=== PATIENT | female | born 1980 | race Caucasian/White ===

== ENCOUNTER 2017-11-07 11:00 | Emergency (ER) | payer MEDICAID, OTHER ==
[~2017-11-07] VITALS: Ht 165.1 cm; Wt 135.0 kg
[~2017-11-07 11:00] MED LIST: ALL220TA PO; NAPR550 PO; PREN0.01 PO
[2017-11-07 11:03] VITALS: BP 148/68; PULSE 89; RESP 18; TEMP 98.2; O2SAT 100
[2017-11-07] MEDS ORDERED: SODIUM CHLOR 0.9% 1000 ML INJ 1,000 ML IV SCH (11:26)
--- NOTE | 2017-11-07 11:37 | PD ---
HPI Chief Complaint: Abdominal Pain Time Seen by Provider: 11:25 Travel History International Travel<30 days: No Contact w/Intl Traveler<30days: No Traveled to known affect area: No History of Present Illness HPI 37-year-old female that presents to the ED for evaluation of right upper quadrant and right lower quadrant abdominal pain for the past 2 days. Per patient she was seen at a [facility] yesterday and was told she had gallstones. She was sent with antibiotics. She was told that she needs to follow with her OB. Per patient she was only given Tylenol for pain. Per patient pain is getting more severe. Per patient she's carrying twins and she is 36 weeks . She follows with Dr. Pham in [place]. She denies any vaginal discharge or bleeding. She states that she is scheduled to have a C- section at 38 weeks. She is concerned about the pain which per patient is 10 out of 10. Per patient she was told that she cannot have the gallbladder out unless her baby is out. Per patient she is here instead of the [facility] because she did felt like the to care of her well in the [facility]. Pain is severe. Patient denies any recent injury. No falls. No fevers chills or sweats. Per patient she also has right-sided chest pain. Multiple allergies to different medications. No other medical issues. Pain is cramping like. She is A+ per our medical records and patient. PFSH Past Medical History ?: LMP: 03/02/17 Social History Alcohol Use: No Tobacco Use: No Substance Use: No Allergies-Medications (Allergen,Severity, Reaction): Coded Allergies: Sulfa (Sulfonamide Antibiotics) (Unverified Allergy, Severe, Hives, ) furosemide (Verified Allergy, Severe, 11/07/17) moxifloxacin (Unverified Allergy, Severe, ANAPHALACTIC, 11/07/17) Uncoded Allergies: AVALOX (Allergy, Severe, 11/27/09) Reported Meds & Prescriptions Reported Meds & Active Scripts Active Reported Anaprox Ds (Naproxen Sodium) 550 Mg Tab 550 Mg PO P45MIDH Vit ( Plus) (Prenat Multivit/[place]/Iron/Folic Ac) Tab 1 Tab PO DAILY Aleve (Naproxen Sodium) 220 Mg Tab 220 Mg PO Review of Systems Except as stated in HPI: all other systems reviewed are Neg Physical Exam Narrative GENERAL: SKIN: Warm and dry. HEAD: Atraumatic. Normocephalic. EYES: Pupils equal and round. No scleral icterus. No injection or drainage. ENT: No nasal bleeding or discharge. Mucous membranes pink and moist. Tongue is midline. No uvula deviation. NECK: Trachea midline. No JVD. CARDIOVASCULAR: Regular rate and rhythm. No murmurs, S3, S4. RESPIRATORY: No accessory muscle use. Clear to auscultation. Breath sounds equal bilaterally. GASTROINTESTINAL: Abdomen soft, non-tender. Hepatic and splenic margins not palpable. abdomen noted. MUSCULOSKELETAL: Extremities without clubbing, cyanosis, or edema. No obvious deformities. Full range of motion of the upper and lower extremities bilaterally. 2+ pulses bilaterally. NEUROLOGICAL: Awake and alert. No obvious cranial nerve deficits. Motor grossly within normal limits. Five out of 5 muscle strength in the arms and legs. Normal speech. PSYCHIATRIC: Appropriate mood and affect; insight and judgment normal. Data Data Last Documented VS Vital Signs Date Time Temp Pulse Resp B/P (MAP) Pulse Ox O2 Delivery O2 Flow Rate FiO2 11/07/17 11:03 98.2 89 18 148/68 (94) 100 Room Air Orders Orders Complete Blood Count With Diff (11/07/17 11:26) Comprehensive Metabolic Panel (11/07/17 11:26) Lipase (11/07/17 11:26) Urinalysis - C+S If Indicated (11/07/17 11:26) Iv Access Insert/Monitor (11/07/17 11:26) Sodium Chlor 0.9% 1000 Ml Inj (Ns 1000 M (11/07/17 11:26) MDM Medical Decision Making Medical Screen Exam Complete: Yes Emergency Medical Condition: Yes Medical Record Reviewed: Yes Differential Diagnosis versus contractions versus gallbladder disease versus chronic pain versus acute pain versus chest pain versus pain during versus miscarriage Narrative Course 37-year-old female that presents to the ED for evaluation of right upper quadrant pain and twin . Patient was properly examined and was found to have signs and symptoms of unclear etiology at this time. Per patient she allegedly was seen in the different hospital where she was told she had gallbladder stones. She was told that she needed to wait until her babies are delivered for her to have surgery if needed to. She states that the pain is getting severe. She was only given Tylenol for pain and she is concerned because the pain is getting more severe. She also complains of right lower quadrant pain and states that he also goes to the chest. She denies any other symptoms. No vaginal bleeding. No water breaking. I had discussion with my attending about the patient's symptoms and she recommended that the patient be immediately transferred to the OB ED for further evaluation as patient is to be closely monitored for her twin as well as evaluated by an OB physician. Patient will be transfarred for further eval Elvis Lerma Nov 07, 2017 11:37
[2017-11-07 11:54] LABS: BACTERIA, URINE OCC /hpf; BILIRUBIN, URINE NEG (NEG); BLOOD, URINE TRACE (NEG); GLUCOSE,URINE NEG (NEG); KETONE, URINE 150 mg/dL (NEG); MUCUS URINE FEW /lpf (OCC); NITRITE,URINE NEG (NEG); PH, URINE 6.5 (5.0-8.5); SQUAMOUS EPITHELIAL CELL URINE 20 /hpf (0-5); URINE COLOR YELLOW (YELLW/STRAW); URINE LEUKOCYTE ESTERASE LARGE (NEG)
[2017-11-07 11:55] LABS: AUTOMATED NEUTROPHIL # 12.2 TH/MM3 (1.8-7.7); BASOPHIL % 0.3 % (0.0-2.0); EOSINOPHIL % 0.2 % (0.0-4.0); HEMATOCRIT 31.5 % (35.0-46.0); HEMOGLOBIN 10.2 GM/DL (11.6-15.3); LYMPH % 11.8 % (9.0-44.0); LYMPHOCYTE # 1.7 TH/MM3 (1.0-4.8); MEAN CELL VOLUME 84.1 FL (80.0-100.0); MEAN CORPUSCULAR HEMOGLOBIN 27.2 PG (27.0-34.0); MEAN CORPUSCULAR HGB CONC 32.3 % (32.0-36.0); MEAN PLATELET VOLUME 9.1 FL (7.0-11.0); MONO % 4.7 % (0.0-8.0); MONOCYTE # 0.7 TH/MM3 (0-0.9); PLATELET COUNT 345 TH/MM3 (150-450); RED BLOOD COUNT 3.74 MIL/MM3 (4.00-5.30); WHITE BLOOD COUNT 14.7 TH/MM3 (4.0-11.0)
[2017-11-07 12:26] VITALS: BP 145/83; PULSE 83
[2017-11-07 12:39] LABS: ALBUMIN 2.3 GM/DL (3.4-5.0); ALT (GPT) 14 U/L (10-53); AST (GOT) 21 U/L (15-37); BICARBONATE 21.1 MEQ/L (21.0-32.0); BLOOD UREA NITROGEN 7 MG/DL (7-18); CALCIUM 8.6 MG/DL (8.5-10.1); CHLORIDE 107 MEQ/L (98-107); CREATININE 0.47 MG/DL (0.50-1.00); GLOMERULAR FILTRATION RATE 148 ML/MIN (>89); GLUCOSE,RANDOM 75 MG/DL (74-106); LIPASE 133 U/L (73-393); SODIUM (NA) 137 MEQ/L (136-145)
[2017-11-07 12:40] LABS: ALKALINE PHOSPHATASE 160 U/L (45-117); TOTAL BILIRUBIN ADULT 0.4 MG/DL (0.2-1.0); TOTAL PROTEIN 6.1 GM/DL (6.4-8.2)
[2017-11-07] MEDS ORDERED: TERBUTALINE INJ 1 MG/ML AMP SQ ONE (13:00)
[2017-11-07] MEDS ORDERED: LACTATED RINGER'S 1000 ML INJ 1,000 ML IV SCH (13:00)
[2017-11-07] MEDS ORDERED: PROCHLORPERAZINE INJ 10 MG/2 ML VIAL IV PUSH ONE (13:00)
--- NOTE | 2017-11-07 13:17 | PD ---
HPI Chief Complaint Right upper quadrant abdominal pain patient was seen last night in [facility] and told she had a gallstone on ultrasound Date Seen: Nov 07, 2017 Time Seen: 13:00 Travel History International Travel<30 Days: No Contact w/Intl Traveler<30Days: No Known Affected Area: No History of Present Illness HPI Patient is 37-year-old white female [id number] previous 1 at 36 weeks with twin gestation followed by Dr. Meraz at [facility] she presented there are last night for right upper quadrant abdominal pain and thickened went up into her chest somewhat. She had a workup done there that included an ultrasound of her gallbladder which showed gallstones according to the patient however they didn't do anything for her except safe to take Tylenol for pain persisted never went away and continued today so she came to this hospital seen in the main emergency room terence blood which is all within normal limits and then I sent her to OB ED. Here in OB ED she is having contractions every 5-8 minutes, heart rate tracings are within normal limits for both babies. Patient was told last night that she needs to stay on a bland diet however still be she's been eating at [employer] + time she says she can't hold anything down water but she held [employer] and other greasy foods and could be reason she's having a flare of her gallbladder. 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 ]had biopsies done and is supposed to have further care definitively done after she's delivered Obstetric History Obstetric History Patient had 4 vaginal deliveries the last was a stat for" infection around baby" done in [facility] Past Surgical History Narrative Surgical 1 prior last and she is planning a repeat tubal ligation with these twins Family History Family History: Social History Alcohol Use: No Tobacco Use: No Substance Abuse: No Allergies-Medications (Allergen,Severity, Reaction): Coded Allergies: Sulfa (Sulfonamide Antibiotics) (Unverified Allergy, Severe, Hives, ) furosemide (Verified Allergy, Severe, 11/07/17) moxifloxacin (Unverified Allergy, Severe, ANAPHALACTIC, 11/07/17) Uncoded Allergies: AVALOX (Allergy, Severe, 11/27/09) Home Meds Reported Medications Naproxen Sodium (Anaprox Ds) 550 Mg Tab, 550 MG PO [id number], #20 11/29/09 Multivit/Min/Fol Ac/Iron/Pren ( Vit ( Plus)) Tab, 1 TAB PO DAILY 11/29/09 Naproxen Sodium (Aleve) 220 Mg Tab, 220 MG PO 11/27/09 Review of Systems General / Constitutional: No: Fever, Weight Gain, Chills, Other Eyes: No: Diploplia, Blurred Vision, Visual changes, Pain, Photophobia HENT: No: Headaches, Vertigo, Lightheadedness Cardiovascular: No: Irregular Rhythm, Chest Pain or Discomfort, Palpitations, Tachycardia, Syncope, Varicosities, Edema, Cyanosis Respiratory: No: Cough, Short of Breath, Other Gastrointestinal: Nausea, Vomiting, Abdominal Pain, No: Diarrhea Genitourinary: No: Decreased Urinary Output, Oliguria Musculoskeletal: No: Limited ROM, Weakness, Cramping, Edema, Pain Skin: No Rash, No Itching, No Dryness, No Lumps, No Change in Pigmentation, No Change in Nails, No Alopecia, No Lesions Neurologic: No: Weakness, Dizziness, Syncope, Focal Abnormalities, Coordination Problem, Headache, Slurred Speech, Seizures Psychiatric: No: Depression, Suicidal Ideations, Homicidal Ideation Endocrine: No: Heat Intolerance, Cold Intolerance, Polydipsia, Polyuria, Other Physical Exam Vital Signs Date Time Temp Pulse Resp B/P (MAP) Pulse Ox O2 Delivery O2 Flow Rate FiO2 11/07/17 11:03 98.2 89 18 148/68 (94) 100 Room Air Narrative GENERAL: Well-nourished, obese patient. SKIN: Warm and dry. HEAD: Normocephalic and atraumatic. EYES: No scleral icterus. No injection or drainage. ENT: No nasal drainage noted. Mucous membranes pink. Airway patent. NECK: Supple, trachea midline. No JVD. CARDIOVASCULAR: Regular rate and rhythm without murmurs, gallops, or rubs. RESPIRATORY: Breath sounds equal bilaterally. No accessory muscle use. BREASTS: Bilateral exam showed no masses , no retractions, no nipple discharge. ABDOMEN/GI: Abdomen obese soft, -tender and right upper quadrant, bowel sounds present, no rebound, no guarding Gravid to [-40] weeks size Fundal Height: [-44] twins & obesity GENITOURINARY: External Genitalia: intact and normal in appearance BUS glands: [-] Cervix: [Post-terior-] Dilatation: [Closed-] Effacement: [-thick] Station: [-high] Presentation: [Breech/vertex by ultrasound here-] Membranes: [intact ] Uterine Contractions: [-Every 5-8 minutes] FHT's: Category: [1-] Baseline: [133/135-] Reactive: [-yes] Variability: [mod-] Decels: [none-] EXTREMITIES: No cyanosis + edema. BACK: Nontender without obvious deformity. No CVA tenderness. NEUROLOGICAL: Awake and alert. Motor and sensory grossly within normal limits. Five out of 5 muscle strength in all muscle groups. Normal speech. Data Data Orders Orders Complete Blood Count With Diff (11/07/17 11:26) Comprehensive Metabolic Panel (11/07/17 11:26) Lipase (11/07/17 11:26) Urinalysis - C+S If Indicated (11/07/17 11:26) Iv Access Insert/Monitor (11/07/17 11:26) Sodium Chlor 0.9% 1000 Ml Inj (Ns 1000 M (11/07/17 11:26) Vital Signs (Adult) .ON ADMISSION (11/07/17 12:57) ^ Labor Status (11/07/17 12:57) ^ Non Stress Test (11/07/17 12:57) ^ Hydration (11/07/17 12:57) Lactated Ringer's 1000 Ml Inj (Lr 1000 M (11/07/17 12:57) Fentanyl Inj (Fentanyl Inj) (11/07/17 13:00) Prochlorperazine Inj (Compazine Inj) (11/07/17 13:00) Terbutaline Inj (Brethine Inj) (11/07/17 13:00) Labs Laboratory Tests Test 11/07/17 11:42 White Blood Count 14.7 Red Blood Count 3.74 Hemoglobin 10.2 Hematocrit 31.5 Mean Corpuscular Volume 84.1 Mean Corpuscular Hemoglobin 27.2 Mean Corpuscular Hemoglobin Concent 32.3 Red Cell Distribution Width 16.0 Platelet Count 345 Mean Platelet Volume 9.1 Neutrophils (%) (Auto) 83.0 Lymphocytes (%) (Auto) 11.8 Monocytes (%) (Auto) 4.7 Eosinophils (%) (Auto) 0.2 Basophils (%) (Auto) 0.3 Neutrophils # (Auto) 12.2 Lymphocytes # (Auto) 1.7 Monocytes # (Auto) 0.7 Eosinophils # (Auto) 0.0 Basophils # (Auto) 0.0 CBC Comment DIFF FINAL Differential Comment Urine Color YELLOW Urine Turbidity HAZY Urine pH 6.[address] [place] 1.025 Urine Protein 30 Urine Glucose (UA) NEG Urine Ketones 150 Urine Occult Blood TRACE Urine Nitrite NEG Urine Bilirubin NEG Urine Urobilinogen LESS THAN 2.0 Urine Leukocyte Esterase LARGE Urine RBC 9 Urine WBC 4 Urine Squamous Epithelial Cells 20 Urine Bacteria OCC Urine Mucus FEW Microscopic Urinalysis Comment CULT NOT INDICATED Blood Urea Nitrogen 7 Creatinine 0.47 Random Glucose 75 Total Protein 6.1 Albumin 2.3 Calcium Level 8.6 Alkaline Phosphatase 160 Aspartate Amino Transf (AST/SGOT) 21 Alanine Aminotransferase (ALT/SGPT) 14 Total Bilirubin 0.4 Sodium Level 137 Potassium Level 4.3 Chloride Level 107 Carbon Dioxide Level 21.1 Anion Gap 9 Estimat Glomerular Filtration Rate 148 Lipase 133 MDM Interpretation(s) Patient is 37-year-old white female G4 8 P5 previous 1 at 36 weeks of with twin gestation followed in the [facility] came complaining of right upper quadrant pain that began last night was seen at the local hospital in [place] until she had a gallstone nothing was done pain persisted so she came here. Laboratory check blood work within normal limits, ultrasound bedside urine OB ED shows breech baby A vertex baby B, heart rate tracing is reactive both babies and she is asael every 5-8 minutes. She began liter of IV fluid for hydration of IV fentanyl for pain and Compazine for nausea IV. Also given dose of subcutaneous terbutaline to try and decreased contraction activity Plan Plan to meet will be for the patient to take by mouth Tylenol 3 for pain at home continue very bland diet of and bedrest with increase in fluid hydration. Follow-up with her doctor. That she's plan to have a done November 19 of this upcoming year, and that possibly could be changed in [place] if symptoms persist or worsen. She is advised to follow up with her OB doctor regarding this Diagnosis Diagnosis: Primary Impression: Twin gestation with eighth Additional Impressions: Gallstone 36 weeks gestation of Disposition: 01 DISCHARGE HOME Condition: Stable Scripts Promethazine (Phenergan) 25 Mg Tablet 25 MG PO Q6H Y for NAUSEA OR VOMITING for 10 Days, #30 TAB 0 Refills Prov: Guillermo Hampton II, MD 11/07/17 Acetaminophen-Codeine (Tylenol-Codeine #3) 300-30 mg Tab 1-2 TAB PO Q6H Y for PAIN for 10 Days, #30 TAB 0 Refills Prov: Guillermo Hampton II, MD 11/07/17 Guillermo Hampton II, MD Nov 07, 2017 13:17
[2017-11-07] MEDS ORDERED: TYLETAB34 PO (13:19)
[2017-11-07] MEDS ORDERED: PROM25TA10 PO (13:19)
== END 2017-11-07 14:09 | disposition home or self-care (01) ==
LOC: NEPC 11:00 → HOBED 14:09
DX: O30.003 Twin pregnancy, unspecified number of placenta and unspecified number of amniotic sacs, third trimester (principal); O99.613 Diseases of the digestive system complicating pregnancy, third trimester; K80.80 Other cholelithiasis without obstruction; O99.213 Obesity complicating pregnancy, third trimester; E66.01 Morbid (severe) obesity due to excess calories; Z3A.36 36 weeks gestation of pregnancy; Z88.2 Allergy status to sulfonamides; Z88.8 Allergy status to other drugs, medicaments and biological substances; Z79.899 Other long term (current) drug therapy
CPT/HCPCS: 59025; 76815; 80053; 81001; 83690; 85025; 96361; 96372; 96374; 96375; 99284; J0780; J3010; J3105; J7120